=== PATIENT | female | born 1965 | race Caucasian/White ===

== ENCOUNTER 2020-05-10 18:58 | Observation (INO) ==
--- OUTSIDE RECORDS SUMMARY | 2020-05-10 19:00 | External Medical Summary | Continuity of Care Document ---
:1965 Author Name Sophia De Address Unavailable Unavailable , Care Team Providers Name Role Phone Janna SAINI Unavailable [email or web address] Active medical history not documented Allergies and Adverse Reactions Allergy history not documented Medications Medications not documented Procedures Procedures not documented Immunizations Immunizations not documented Plan of Treatment Planned Observations Planned Goals not documented Results No Known Results Results not documented
--- OUTSIDE RECORDS SUMMARY | 2020-05-10 19:01 | External Medical Summary | Continuity of Care Document ---
:1965 Author Name Sophia De Address Unavailable Unavailable , Care Team Providers Name Role Phone Janna SAINI Unavailable [email or web address] Active medical history not documented Allergies and Adverse Reactions Allergy history not documented Medications Medications not documented Procedures Procedures not documented Immunizations Immunizations not documented Plan of Treatment Planned Observations Planned Goals not documented Results No Known Results Results not documented
[2020-05-10] MEDS ORDERED: ONDANSETRON INJ 2 MG/ML 2 ML VIAL IV STA (19:34)
[2020-05-10] MEDS ORDERED: SODIUM CHLORIDE 0.9% 1000ML 1,000 ML IV ONE (19:34)
[2020-05-10] MEDS ORDERED: KETOROLAC TROMETHAMINE 15 MG/ML VIAL IV STA (19:34)
[2020-05-10 20:12] LABS: Basophils # (auto) 0.01 K/uL (0-0.2); Basophils % (auto) 0.1 %; Eosinophils # (auto) 0.03 K/uL (0-0.5); Eosinophils % (auto) 0.3 %; Hematocrit (blood only) 35.6 % (37-47); Hemoglobin 11.8 g/dL (12.0-16.0); Immature Granulocytes # (auto) 0.02 K/uL (0.00-0.02); Immature Granulocytes % (auto) 0.2 %; Lymphocytes # (auto) 1.03 K/uL (1.2-3.4); Lymphocytes % (auto) 8.9 %; Mean Corpuscular Hemoglobin 30.8 pg (25-34); Mean Corpuscular Hgb Conc 33.1 g/dL (32-36); Mean Platelet Volume 9.8 fL (7.4-10.4); Monocytes # (auto) 1.21 K/uL (0.11-0.59); Monocytes % (auto) 10.4 %; Neutrophils # (auto) 9.32 K/uL (1.4-6.5); Neutrophils % (auto) 80.1 %; Platelet Count 397 K/uL (130-400); RDW Coefficient of Variation 14.5 % (11.5-14.5); RDW Standard Deviation 49.1 fL (36.4-46.3); Red Blood Count 3.83 M/uL (4.2-5.4); White Blood Count 11.62 K/uL (4.8-10.8)
[2020-05-10 20:29] LABS: Albumin Level 4.5 gm/dl (3.4-5.0); BUN Creatinine Ratio 20.1 (10-20); Bilirubin Direct 0.2 mg/dl (0-0.2); Calcium 9.5 mg/dl (8.5-10.1); Creatinine Clr Calc Pharmacy 68.4 ml/min; Est GFR (African American) 82.8; Est GFR (Non-African American) 71.5; Potassium 3.8 mmol/L (3.5-5.1)
[2020-05-10 20:32] LABS: Bilirubin,Total 0.6 mg/dl (0.2-1); Total Protein 8.2 gm/dl (6.4-8.2)
[2020-05-10 20:39] LABS: INR 0.9 (0.9-1.1); Partial Thromboplastin Time 27.2 Seconds (21.0-31.0); Prothrombin Time 9.8 Seconds (9.0-12.0)
[2020-05-10] MEDS ORDERED: IOVERSOL 100ml IV ONE (20:51)
--- NOTE | 2020-05-10 21:07 | CT Scan Report ---
ABDOMEN AND PELVIS CT WITH IV CONTRAST CT DOSE: 444.71 mGy.cm HISTORY: Acute right lower quadrant abdominal pain rlq pain TECHNIQUE: Multiaxial CT images of the abdomen and pelvis were performed following the IV administrat ion of 91 cc of Optiray 320, A dose lowering technique was utilized adhering to the principles of AL ROGELIO. COMPARISON STUDY: CT abdomen and pelvis 03/23/2013 FINDINGS: The imaged inferior cardiac chambers are unremarkable. Clear lung bases. No pneumatosis or pneumoperitoneum. Diminutive spleen. Pancreas, adrenal glands, gallbladder and liver appear unremarka ble. There is patency of the hepatic and portal veins. Kidneys, ureters, urinary bladder and uterus a re unremarkable. No adnexal mass lesion. Mild calcified plaque of the abdominal aorta without aneurys m. There is no adenopathy. No bowel obstruction. 9 mm appendicolith in the proximal appendix. The appendix is dilated measuring up to 11 mm transversely and is fluid-filled with wall thickening and mucosal hyperemia with periappe ndiceal stranding. Additional punctate appendicoliths are noted within the appendiceal tip. Focus of air is noted within the mid appendix. No perforation or drainable fluid collection. Unremarkable soft tissues. Bones appear intact. There is no acute fracture. IMPRESSION: 1. Acute appendicitis with appendicoliths. Focus of air within the mid appendiceal lumen may be secon nia to necrosis/developing gangrenous acute appendicitis. No evidence of perforation or abscess. 2. No bowel obstruction. ACT 112: Negative or not required by law. The above report was generated using voice recognition software. It may contain grammatical, syntax o r spelling errors. Electronically signed by: Juanjo Pandya M.D. 05/10/2020 9:05 PM
[2020-05-10] MEDS ORDERED: PIPERACILLIN/TAZOBACTAM 4.5 GM/120 ML BAG IV ONE (21:43)
--- NOTE | 2020-05-10 22:29 | History & Physical Report ---
Date of Service May 10, 2020 Assessment & Plan (1) Appendicitis, acute: Pathophysiology of appendicitis was explained to the patient including indication for surgery risk and complication of the surgery other options of surgery including antibiotic although in her case it would not recommend that since she is a appendicolith and she is over 40 She agrees to proceed with surgery at this time we will get preoperative Covid test (I talk with the lab specifically regarding this) chest x-ray EKG is pending Present on Admission?: Yes History of Present Illness Primary Care Provider: Lay Reich DO 55-year-old female came into the emergency room to be evaluated for abdominal pain underwent a CT scan of the abdomen and pelvis findings repair with acute appendicitis and we were called to see her The patient states that she woke up this morning just not feeling hungry she did not think much about that but about 3:00 she started developing abdominal pain progressively migrated to the right side She denies any nausea and vomiting She has never had any pain like this before He was evaluated for kidney stones in the remote past and only surgery was an endometrial ablation She denies any chest pain any shortness of breath Presently she is working from home Allergies Allergy/AdvReac Type Severity Reaction Status Date / Time Sulfa (Sulfonamide Allergy Unknown rash Verified 09/16/14 20:57 Antibiotics) Home Medications Medication Instructions Recorded Confirmed Type CALCIUM CARBONATE (CALCIUM) 600 mg PO BID #0 03/23/13 History CHOLECALCIFEROL (Vitamin D) 1,000 inter.unit PO DAILY #0 tab 03/23/13 History FERROUS SULFATE 325 mg PO BID #0 03/23/13 History Multivitamin 1 tab PO DAILY #0 tab 03/23/13 History Past Med/Surg History Social History Smoking Status: Never smoker Tobacco Type: Cigarettes Feels Safe at Home: Yes Physical Exam Physical Exam: She is alert coherent in no distress Eyes: PERRL, conjunctivae normal, anicteric sclerae ENMT: external ear and nose normal, oropharynx normal Neck: trachea midline, no thyromegaly No palpable supraclavicular masses Respiratory: normal respiratory effort, lungs clear to auscultation normal respiratory effort Auscultation: lungs clear to auscultation bilaterally Cardiovascular: Rate/Rhythm: regular rate Heart Sounds: normal S1 Gastrointestinal (Abdomen): Localized tenderness and rebound in the right lower quadrant at McBurney's point and below it some guarding in the left lower quadrant Musculoskeletal: No pedal edema appreciated Results & Data ([facility]) Vital Signs (Past 12 Hours) Vital Signs Temp Pulse Pulse Resp BP BP Pulse Ox 05/10/20 20:55 97 H 20 121/74 98 05/10/20 19:01 37.1 C 89 16 137/90 99 results include lab was reviewed
[2020-05-10] MEDS ORDERED: SUCCINYLCHOLINE CHLORIDE 20 MG/ML 10 ML VIAL IV ONE (22:54)
[2020-05-10] MEDS ORDERED: ROCURONIUM BROMIDE 10 MG/ML 5 ML VIAL IV ONE (22:54)
[2020-05-10] MEDS ORDERED: LIDOCAINE HCL 2% 2 ML VIAL/AMP(20MG/ML) INFIL ONE (22:54)
[2020-05-10] MEDS ORDERED: GLYCOPYRROLATE 0.2 MG/ML VIAL ONE (22:54)
[2020-05-10] MEDS ORDERED: NEOSTIGMINE METHYLSULFATE 5 MG/5 ML SYR ONE (22:54)
[2020-05-10] MEDS ORDERED: DEXAMETHASONE SOD INJ 4 MG/ML VIAL ONE (22:54)
[2020-05-10] MEDS ORDERED: fentaNYL citrate 100 MCG/2 ML VIAL ONE (22:54)
[2020-05-10] MEDS ORDERED: ONDANSETRON INJ 2 MG/ML 2 ML VIAL ONE (22:54)
[2020-05-10] MEDS ORDERED: PROPOFOL IV EMULSION 10 MG/ML 20 ML VIAL IV ONE (22:54)
[2020-05-10] MEDS ORDERED: SUGAMMADEX SODIUM 200 MG/2 ML VIAL IV ONE (22:59)
[2020-05-10] MEDS ORDERED: LIDOCAINE/EPINEPHRINE 1% 20 ML VIAL ONE (23:13)
[2020-05-10] MEDS ORDERED: ATROPINE SULFATE 0.1 MG/ML 10ML SYR IV PRN (23:42)
[2020-05-10] MEDS ORDERED: ONDANSETRON INJ 2 MG/ML 2 ML VIAL IV PRN (23:42)
[2020-05-10] MEDS ORDERED: fentaNYL citrate 100 MCG/2 ML VIAL IV PRN (23:42)
[2020-05-10] MEDS ORDERED: ePHEDrine sulfate 50 MG/ML AMP IV PRN (23:42)
[2020-05-10] MEDS ORDERED: PROMETHAZINE HCL 6.25 MG in SODIUM CHLORIDE 0.9% 50 ML IV PRN (23:42)
--- NOTE | 2020-05-10 23:42 | Anesthesiology Consultation ---
Date of Service May 10, 2020 Assessment & Plan (1) Encounter for pre-operative examination: Chart Review Chart Review: Acceptable Risk for Surgery and Patient NOT seen in Pre Admission Testing Consults Requested none ASA [id number] Proposed Anesthesia Anesthesia Type: General Risk / Benefits Reviewed With: PT / POA / Parent / Guardian, Accepts Plan and Informed Consent Obtained History Surgery Operation Date: 05/10/20 22:45 Proposed Procedures p Laparoscopic Appendectomy - Tutu Weiss MD Height/Weight Height: 5 ft 3 in Weight: 76.6 kg Allergies Allergy/AdvReac Type Severity Reaction Status Date / Time Sulfa (Sulfonamide Allergy Unknown rash Verified 05/10/20 23:03 Antibiotics) Medications Home Medications Medication Instructions Recorded Confirmed Last Taken turmeric 400 mg PO DAILY 05/10/20 05/10/20 05/10/20 NPO Date Last Intake of Fluids: 05/09/20 Time Last Intake of Fluids: 15:00 Date Last Intake of Solids: 05/09/20 Time Last Intake of Solids: 15:00 Exercise / Class Metabolic Activity II 4-5 Yardwork/Stairs/Walk up hill Past Anesthesia History No Hx of Anesthesia Complications and No Family Hx of Anesthesia Complications History of PONV No Hx of PONV and No Hx of Motion Sickness Social History Smoking Status: Never smoker Physical Exam Vital Signs Last Vital Signs Temp 37.1 C 05/10/20 19:01 Pulse 74 05/10/20 23:01 Resp 18 05/10/20 23:01 BP 123/90 05/10/20 23:01 Pulse Ox 99 05/10/20 23:01 ENMT Mouth: no dentition abnormality Thyromental Distance: > or= 3.5 Finger Breadths Mallampati Class: II Neck normal visual inspection Respiratory normal respiratory effort Auscultation: lungs clear to auscultation bilaterally Cardiovascular Rate/Rhythm: regular rate and regular rhythm Psychiatric Orientation: alert Testing Laboratory Results 05/10/20 19:57 05/10/20 19:57 PT 9.8 Seconds (9.0-12.0) 05/10/20 19:57 INR 0.9 (0.9-1.1) 05/10/20 19:57 APTT 27.2 Seconds (21.0-31.0) 05/10/20 19:57
[2020-05-11] MEDS ORDERED: fentaNYL citrate 100 MCG/2 ML VIAL ONE (00:03)
[2020-05-11] MEDS ORDERED: MoRPHine SULFATE 2 MG/ML CARP ONE (00:03)
[2020-05-11] MEDS ORDERED: KETOROLAC 30 MG/ML VIAL ONE (00:07)
[2020-05-11] MEDS ORDERED: PHENYLEPHRINE 100MCG/ML 5ML SYR ONE (00:07)
[2020-05-11] MEDS ORDERED: PROPOFOL IV EMULSION 10 MG/ML 20 ML VIAL IV ONE (00:28)
--- NOTE | 2020-05-11 00:50 | Post Operative Brief Note ---
PG Immediate Post Op with CF Date of Surgery May 11, 2020 Pre & Post Diagnosis Operation Date: 05/10/20 22:45 Pre-Op Diagnosis: Acute Appendicitis Post-Op Diagnosis: Acute Appendicitis Not Ruptured I identified the patient and participated in the time-out.: Yes Procedure Operation Date: 05/10/20 22:45 <No data on this case meets the specified criteria> Surgeon Tutu Weiss MD [employer] 0 Estimated Blood Loss 5 Findings Consistent with Post-Op Diagnosis Specimens Specimen Description: A. Appendix
--- NOTE | 2020-05-11 01:21 | Operative Report ---
PG Post Operative Report Pre & Post Diagnosis Operation Date: 05/10/20 22:45 Pre-Op Diagnosis: Acute Appendicitis Post-Op Diagnosis: Acute Appendicitis Not Ruptured I identified the patient and participated in the time-out.: Yes Procedure Operation Date: 05/10/20 22:45 Actual Procedures p Laparoscopic Appendectomy - Tutu Weiss MD The patient was brought into the operating theater supine position general endotracheal anesthesia the abdomen was prepped with Betadine solution properly draped timeout was had patient identified systemic antibiotics on board in the supraumbilical area made a small opening sufficient enough to pass a Veress needle followed by CO2 followed by 5 mm trocar camera followed point of entry inspected no injury identified we were able to see the cecum very easily could not see the appendix at this point a 5 mm trocar was placed in the right upper quadrant with preemptive local analgesic at this point we were able to use a grasper and elevate the cecum and saw that the appendix we can see the base of it was involved in some prominent fatty tissue at this point I converted the 5 mm umbilical port by placing the camera right upper quadrant port then used a 12 mm trocar in the supraumbilical area the 5 mm port that we had removed we then placed a left lower quadrant with preemptive local analgesic and direct visualization camera was placed in left lower quadrant and we started working on the mobilized the appendix by first rotating the patient to the left were able to see the appendix as we elevated the cecum we able to mesoappendix was elevated and we worked from this aspect first using 10 mm clips to we were able to divide the mesoappendix hemostasis was excellent after this had been performed I was able to create a window between the cecum and the base of the appendix a blue load was brought up onto the field and we able to fire without any difficulty taking the appendix off the base of the cecum the patient had a redundant fatty tissue coming off the retroperitoneal area to the appendix itself which was elevated at this point I used another load of the DAYNA to divide the remaining fatty tissue which was separate than the mesoappendix the area was then checked hemostasis and irrigated appear satisfactory the appendix was placed in an Endopouch and taken out intact through the umbilical port from millimeter port was repositioned and then we inspected the operative site which no bleeding was identified we placed the patient in reverse Trendelenburg rotated to the right and suctioned out towards the pelvic area camera was placed in the right upper quadrant port and visualizing left lower quadrant port as we pulled that out no bleeding is identified the umbilical port no bleeding was identified the patient did have a fine band coming off the abdominal wall near the falciform ligament that we divided the remaining trocar was removed fascial stitch of 0 Vicryl was used [id number] multiple times to close the periumbilical area Monocryl was used for subcutaneous tissue in that site and the remaining trocar sites of note the patient had a very redundant supraumbilical panniculus that pretty much had her trocar site Steri-Strips were applied procedure was tolerated well by the patient estimated blood loss 5 cc addendum the appendix did not have any fibrinous exudate and grossly did not appear to be perforated all of these markedly dilated and inflamed Surgeon Tutu Weiss MD Insurance Salesperson 0 Estimated Blood Loss 5 Findings Consistent with Post-Op Diagnosis Specimens appendix Description of Procedure merda I attest to the content of the Intraoperative Record and any orders documented therein. Any exceptions are noted below.
--- NOTE | 2020-05-11 01:31 | Anesthesiology Progress Note ---
Date of Service May 11, 2020 Anesthesia Post Procedure Vital Signs Vital Signs: Temp Pulse Pulse Pulse Resp BP BP 05/11/20 01:30 36.7 C 73 20 106/60 05/11/20 01:20 73 22 113/66 05/11/20 01:10 72 16 122/71 05/11/20 01:01 36.5 C 90 12 123/74 05/10/20 23:01 74 18 123/90 05/10/20 20:55 97 H 20 121/74 05/10/20 19:01 37.1 C 89 16 137/90 Pulse Ox 05/11/20 01:30 95 05/11/20 01:20 95 05/11/20 01:10 96 05/11/20 01:01 99 05/10/20 23:01 99 05/10/20 20:55 98 05/10/20 19:01 99 Transfer of Care Handoff Completed per policy Notes Mental Status: alert / awake / arousable Patient Amnestic to Procedure: Yes Nausea / Vomiting: adequately controlled Pain: adequately controlled Airway Patency, RR, SpO2: stable & adequate BP & HR: stable & adequate Hydration State: stable & adequate Anesthetic Complications: no major complications apparent
[2020-05-11] MEDS ORDERED: PIPERACILL/TAZOBAC CONSULT ACTIVE PRN (01:54)
[2020-05-11] MEDS ORDERED: oxyCODONE/ACETAMINOPHEN 5mg/325mg TAB PO PRN (01:54)
[2020-05-11] MEDS ORDERED: MoRPHine SULFATE 4 MG/ML 1 ML CARP\\VIAL IM PRN (01:54)
[2020-05-11] MEDS ORDERED: ONDANSETRON INJ 2 MG/ML 2 ML VIAL IV PRN (01:54)
--- NOTE | 2020-05-11 01:59 | Emergency Department Note ---
History of Present Illness General Chief Complaint: Abdominal Pain Stated Complaint: ABDOMINAL PAIN Time Seen by Provider: 05/10/20 19:23 History of Present Illness Provider Complaint: abdominal pain Onset (ago): 3 hour(s) Pain Consistency: constant Location: diffuse Severity: moderate Maximum Pain Intensity: 7 Current Pain Intensity: 2 Quality: + stabbing and + aching Relieved By: + nothing Exacerbated By: + nothing Context: no foreign travel, no possible food poisoning, no sick contacts, no recent antibiotic use, no recent surgery/procedure and no recent injury Associated Symptoms: + nausea; no vomiting, no diarrhea, no fever, no chills, no constipation, no dysuria, no hematemesis, no hematochezia, no melena, no hematuria, no anorexia, no syncope, no headache, no chest pain and no numbness Home Medications Medication Instructions Recorded Confirmed Type turmeric 400 mg PO DAILY 05/10/20 05/10/20 History Allergies Allergy/AdvReac Type Severity Reaction Status Date / Time Sulfa (Sulfonamide Allergy Unknown rash Verified 05/10/20 23:03 Antibiotics) Past Med/Surg History Medical History (Updated 05/11/20 @ 02:00 by Ted Robins) No pertinent family history No pertinent past medical history Surgical History (Updated 05/11/20 @ 01:56 by Ted Robins) No pertinent past surgical history Social History Smoking Status: Never smoker Tobacco Type: Cigarettes Feels Safe at Home: Yes Review of Systems A total of 10 systems reviewed and were otherwise negative Physical Exam Vital Signs: Vital Signs - 24 hr 05/10/20 19:01 05/10/20 20:55 05/10/20 23:01 Temperature 37.1 C Temperature Source Oral Pulse Rate 89 Pulse Rate [Right Finger] 97 H 74 Respiratory Rate 16 20 18 Respiratory Effort / Characteristics Non-Labored Sponta neous Non-Labored Respiratory Depth Normal Normal Blood Pressure 137/90 Blood Pressure [Ri ght Arm] 121/74 123/90 Blood Pressure Amira n 105 Blood Pressure Amira n [Right Arm] 89 101 Pulse Oximetry 99 98 99 Oxygen Delivery Me thod Room Air Room Air Sepsis Recent Feve r Within 48 Hours No Sepsis New/Unexpla ined Change in Men thao Status No Sepsis Action Take n by Nursing No Action Required 05/10/20 23:23 Temperature Temperature Source Pulse Rate Pulse Rate [Right Finger] Respiratory Rate Respiratory Effort / Characteristics Respiratory Depth Blood Pressure Blood Pressure [Ri ght Arm] Blood Pressure Amira n Blood Pressure Amira n [Right Arm] Pulse Oximetry Oxygen Delivery Me thod Room Air Sepsis Recent Feve r Within 48 Hours Sepsis New/Unexpla ined Change in Men thao Status Sepsis Action Take n by Nursing Physical Exam: Physical Exam GENERAL: She is oriented to person, place, and time. She appears well-developed and well-nourished. She does not appear distressed. HENT: Exam performed. -Head: Normocephalic and atraumatic. -Right Ear: External ear normal. No mastoid tenderness. -Left Ear: External ear normal. No mastoid tenderness. -Mouth/Throat: The oropharynx is clear and moist. No trismus in the jaw. No dental abscesses or uvula swelling. No oropharyngeal exudate or tonsillar abscesses. EYES: Conjunctivae and EOM are normal. Pupils are equal, round, and reactive to light. Right eye exhibits no discharge. Left eye exhibits no discharge. No scleral icterus. NECK: Normal range of motion. Neck supple. No JVD present. No spinous process tenderness present. No carotid bruit present. No rigidity. No tracheal deviation and normal range of motion present. No Brudzinski's sign and no Kernig's sign noted. CV: Normal rate, regular rhythm, normal heart sounds and intact distal pulses. There is no peripheral edema. Palpable radial pulses bue. PULM/CHEST: Effort normal and breath sounds normal. No respiratory distress. No stridor. She has no wheezes. She has no rales. -Chest Wall: She exhibits no tenderness. ABD: The abdomen is soft. Bowel sounds are normal. She has no distension. No mass is present. There is tenderness to palpation of the right lower quadrant. There is no rebound, no guarding, no Mckeon's sign. Rovsig negative MUSC/SKEL: Normal range of motion. There is no peripheral edema, tenderness or deformity. LYMPH: No cervical adenopathy. NEURO: She is alert and oriented to person, place, and time. She has normal strength. No cranial nerve deficit or sensory deficit. Coordination and gait normal. GCS eye subscore is 4. GCS verbal subscore is 5. GCS motor subscore is 6. Cerebellar tests wnl. SKIN: Skin is warm and dry. She is not diaphoretic. PSYCH: She has a normal mood and affect. Behavior is normal. Judgment and thought content normal. Course Course 1922: The patient was evaluated in room B7. A complete history and physical exam was performed. 2144: Vital signs stable. Labs within normal limits. CT shows a gangrenous appendicitis. Patient treated with Zosyn. Spoke with Dr. Stockton who will evaluate the patient for surgery. Administered Medications Discontinued Medications Sodium Chloride (Nss 1000ml) 1,000 mls @ 999 mls/hr IV .Q1H1M ONE Stop: 05/10/20 20:34 Last Infusion: 05/10/20 21:03 Dose: 0 mls/hr Documented by: [id number] Admin: 05/10/20 20:02 Dose: 999 mls/hr Documented by: [id number] Piperacillin Sod/Tazobactam Sod (Zosyn) 4.5 gm in 120 mls @ 240 mls/hr IV NOW ONE Stop: 05/10/20 22:12 Last Infusion: 05/10/20 22:44 Dose: 0 mls/hr Documented by: [id number] Admin: 05/10/20 22:09 Dose: 240 mls/hr Documented by: [id number] Ioversol (Ioversol 100ml) 91 ml IV ONCE ONE Stop: 05/10/20 20:52 Last Admin: 05/10/20 20:51 Dose: 91 ml Documented by: [id number] Ketorolac Tromethamine (Ketorolac Tromethamine 15 Mg/Ml Vial) 15 mg IV NOW STA Stop: 05/10/20 19:35 Last Admin: 05/10/20 20:02 Dose: 15 mg Documented by: [id number] Lidocaine/Epinephrine (Lidocaine/Epinephrine 1% 20 Ml Vial) Confirm Administered Dose 20 ml .ROUTE .STK-MED ONE Stop: 05/10/20 23:14 Last Admin: 05/11/20 00:43 Dose: 10 ml Documented by: [id number] Ondansetron HCl (Ondansetron Inj 2 Mg/Ml 2 Ml Vial) 4 mg IV NOW STA Stop: 05/10/20 19:35 Last Admin: 05/10/20 20:02 Dose: 4 mg Documented by: [id number] Medical Decision Making Laboratory Data Result diagrams: 05/10/20 19:57 05/10/20 19:57 Lab Results 05/10/20 05/10/2005/10/21 Range/Units 19:57 19:57 19:57 WBC 11.62 H (4.8-10.8) K/uL RBC 3.83 L (4.2-5.4) M/uL Hgb 11.8 L (12.0-16.0) g/dL Hct 35.6 L (37-47) % MCV 93.0 (80-100) fL MCH 30.8 (25-34) pg MCHC 33.1 (32-36) g/dL RDW Std Deviation 49.1 H (36.4-46.3) fL RDW Coeff of Bertha 14.5 (11.5-14.5) % Plt Count 397 (130-400) K/uL MPV 9.8 (7.4-10.4) fL Immature Gran % (Auto) 0.2 % Neut % (Auto) 80.1 % Lymph % (Auto) 8.9 % [place] % (Auto) 10.4 % Eos % (Auto) 0.3 % Baso % (Auto) 0.1 % Neut # (Auto) 9.32 H (1.4-6.5) K/uL Lymph # (Auto) 1.03 L (1.2-3.4) K/uL [place] # (Auto) 1.21 H (0.11-0.59) K/uL Eos # (Auto) 0.03 (0-0.5) K/uL Baso # (Auto) 0.01 (0-0.2) K/uL Immature Gran # (Auto) 0.02 (0.00-0.02) K/uL PT 9.8 (9.0-12.0) Seconds INR 0.9 (0.9-1.1) APTT 27.2 (21.0-31.0) Seconds PTT Ratio 1.0 Sodium 137 (136-145) mmol/L Potassium 3.8 (3.5-5.1) mmol/L Chloride 104 (98-107) mmol/L Carbon Dioxide 25 (21-32) mmol/L Anion Gap 8.0 (3-11) BUN 18 (7-18) mg/dl Creatinine 0.90 (0.6-1.2) mg/dl Est Cr Clr Drug Dosing 68.4 ml/min Est GFR ( Amer) 82.8 Est GFR (Non-Af Amer) 71.5 BUN/Creatinine Ratio 20.1 H (10-20) Glucose 89 (70-99) mg/dl Calcium 9.5 (8.5-10.1) mg/dl Total Bilirubin 0.6 (0.2-1) mg/dl Direct Bilirubin 0.2 (0-0.2) mg/dl AST 16 (15-37) U/L ALT 26 (12-78) U/L Alkaline Phosphatase 71 (45-117) U/L Total Protein 8.2 (6.4-8.2) gm/dl Albumin 4.5 (3.4-5.0) gm/dl Lipase 80 (73-393) U/L SARS-CoV-2, RNA, NAAT (NEGATIVE) 05/10/20 Range/Units 22:17 WBC (4.8-10.8) K/uL RBC (4.2-5.4) M/uL Hgb (12.0-16.0) g/dL Hct (37-47) % MCV (80-100) fL MCH (25-34) pg MCHC (32-36) g/dL RDW Std Deviation (36.4-46.3) fL RDW Coeff of Bertha (11.5-14.5) % Plt Count (130-400) K/uL MPV (7.4-10.4) fL Immature Gran % (Auto) % Neut % (Auto) % Lymph % (Auto) % [place] % (Auto) % Eos % (Auto) % Baso % (Auto) % Neut # (Auto) (1.4-6.5) K/uL Lymph # (Auto) (1.2-3.4) K/uL [place] # (Auto) (0.11-0.59) K/uL Eos # (Auto) (0-0.5) K/uL Baso # (Auto) (0-0.2) K/uL Immature Gran # (Auto) (0.00-0.02) K/uL PT (9.0-12.0) Seconds INR (0.9-1.1) APTT (21.0-31.0) Seconds PTT Ratio Sodium (136-145) mmol/L Potassium (3.5-5.1) mmol/L Chloride (98-107) mmol/L Carbon Dioxide (21-32) mmol/L Anion Gap (3-11) BUN (7-18) mg/dl Creatinine (0.6-1.2) mg/dl Est Cr Clr Drug Dosing ml/min Est GFR ( Amer) Est GFR (Non-Af Amer) BUN/Creatinine Ratio (10-20) Glucose (70-99) mg/dl Calcium (8.5-10.1) mg/dl Total Bilirubin (0.2-1) mg/dl Direct Bilirubin (0-0.2) mg/dl AST (15-37) U/L ALT (12-78) U/L Alkaline Phosphatase (45-117) U/L Total Protein (6.4-8.2) gm/dl Albumin (3.4-5.0) gm/dl Lipase (73-393) U/L SARS-CoV-2, RNA, NAAT NEGATIVE (NEGATIVE) Imaging Data Radiologist's Impression: ABDOMEN AND PELVIS CT WITH IV CONTRAST CT DOSE: 444.71 mGy.cm HISTORY: Acute right lower quadrant abdominal pain rlq pain TECHNIQUE: Multiaxial CT images of the abdomen and pelvis were performed f ollowing the IV administration of 91 cc of Optiray 320, A dose lowering technique was utilized adhering to the principles of ALARA. COMPARISON STUDY: CT abdomen and pelvis 03/23/2013 FINDINGS: The imaged inferior cardiac chambers are unremarkable. Clear lung bases. No pneumatosis or pneumoperitoneum. Diminutive spleen. Pancreas, adrenal glands, gallbladder and liver appear unremarkable. There is patency of the hepatic and portal veins. Kidneys, ureters, urinary bladder and uterus are unremarkable. No adnexal mass lesion. Mild calcified plaque of the abdominal aorta without aneurysm. There is no adenopathy. No bowel obstruction. 9 mm appendicolith in the proximal appendix. The appendix is dilated measuring up to 11 mm transversely and is fluid-filled with wall thickening and mucosal hyperemia with periappendiceal stranding. Additional punctate appendicoliths are noted within the appendiceal tip. Focus of air is noted within the mid appendix. No perforation or drainable fluid collection. Unremarkable soft tissues. Bones appear intact. There is no acute fracture. IMPRESSION: 1. Acute appendicitis with appendicoliths. Focus of air within the mid appendiceal lumen may be secondary to necrosis/developing gangrenous acute appendicitis. No evidence of perforation or abscess. 2. No bowel obstruction. ACT 112: Negative or not required by law. The above report was generated using voice recognition software. It may contain grammatical, syntax or spelling errors. Electronically signed by: Juanjo Pandya M.D. 05/10/2020 9:05 PM Dictated: 05/10/202056Transcribed: 05/10/202056 MDM Narrative Vital signs stable. Labs within normal limits. CT shows a gangrenous appendicitis. Patient treated with Zosyn. Spoke with Dr. Stockton who will evaluate the patient for surgery. Impression & Plan Acute appendicitis Discharge Plan Visit Data Chief Complaint: Abdominal Pain Stated Complaint: ABDOMINAL PAIN ED Provider: Ted Robins Discharge Problem: Acute appendicitis Patient Disposition: Admitted As Inpatient Discharge Instructions Interventions: ED Discharge Assessment Last Done: 05/10/20 23:23 Discharge Problem: Acute appendicitis Qualifiers: Acute appendicitis type: with generalized peritonitis Appendicitis gangrene presence: with gangrene Appendicitis perforation presence: unspecified whether perforation present Appendicitis abscess presence: without abscess Qualified Code(s): K35.20 - Acute appendicitis with generalized peritonitis, without abscess
[2020-05-11] MEDS: LACTATED RINGER'S 1,000 ML IV SCH ×2 (02:00→12:06)
[2020-05-11] MEDS ORDERED: PIPERACILLIN/TAZOBACTAM 3.375 GM in DEXTROSE 5% 100 ML IV ONE (02:00)
[2020-05-11 05:11] VITALS: O2SAT 96
--- NOTE | 2020-05-11 07:32 | Surgery Progress Note ---
Date of Service May 11, 2020 Assessment & Plan (1) Acute appendicitis: s/p lap appy seen with Dr. Weiss doing well post op discharge if tolerates diet Admission and Anticipated Discharge Date Admission Date: May 11, 2020 Subjective No nausea, pain managed Physical Exam Gastrointestinal (Abdomen): Inspection/Auscultation: + abdominal surgical incision (clean, dry) Percussion/Palpation: abdomen soft Results & Data ([facility]) Vital Signs (Past 12 Hours) Vital Signs Temp Pulse Pulse Resp BP BP Pulse Ox 05/11/20 05:10 36.8 C 78 14 95/54 L 96 05/11/20 03:55 36.8 C 78 16 104/64 94 05/11/20 02:46 36.4 C L 77 14 96/57 L 94 05/11/20 02:20 37.7 C H 72 14 94/57 L 94 05/11/20 01:50 37.7 C H 75 16 103/55 L 96 05/11/20 01:40 36.7 C 70 20 108/62 95 05/11/20 01:30 36.7 C 73 20 106/60 95 05/11/20 01:20 73 22 113/66 95 05/11/20 01:10 72 16 122/71 96 05/11/20 01:01 36.5 C 90 12 123/74 99 05/10/20 23:01 74 18 123/90 99 05/10/20 20:55 97 H 20 121/74 98 PG Care Time/CCT Total # of Minutes Spent Total Time Spent with Patient: Total time spent is greater than 50% in coordination of care (as documented) at patient's floor/unit and/or counseling patient: Coding Level of Care Code None Diagnoses Acute appendicitis K35.20; K35.891 Acute appendicitis type: with generalized peritonitis Appendicitis abscess presence: without abscess Appendicitis gangrene presence: with gangrene Appendicitis perforation presence: unspecified whether perforation present (1) Acute appendicitis Acute appendicitis type: with generalized peritonitis Appendicitis abscess presence: without abscess Appendicitis gangrene presence: with gangrene Appendicitis perforation presence: unspecified whether perforation present Qualified Code(s): K35.20 - Acute appendicitis with generalized peritonitis, without abscess; K35.891 - Other acute appendicitis without perforation, with gangrene
[2020-05-11 07:40] VITALS: PULSE 73
--- NOTE | 2020-05-11 07:45 | XRay Report ---
XR chest 1V portable CLINICAL HISTORY: Preoperative evaluation. COMPARISON STUDY: Chest radiograph September 16, 2014. FINDINGS: Lung volumes are normal. Lungs are clear. There is no pneumothorax or pleural effusion. Car diac size is at the upper limits of normal. Mediastinal contours are normal. There is no evidence for pulmonary edema. IMPRESSION: No acute cardiopulmonary findings. ACT 112: Negative or not required by law. Electronically signed by: Aayush Guy M.D. 05/11/2020 7:44 AM
[2020-05-11] MEDS ORDERED: PIPERACILLIN/TAZOBACTAM 3.375 GM in DEXTROSE 5% 100 ML IV SCH (08:00)
[2020-05-11] MEDS ORDERED: INFLUENZA ADMINISTRATION CHARGE ONE (08:00)
[2020-05-11] MEDS ORDERED: INFLUENZA VIRUS QUAD VACCINE 0.5 ML SYR IM ONE (08:00)
[2020-05-11 11:31] VITALS: BP 90/48; TEMP 97.7
--- NOTE | 2020-05-11 14:25 | Electrocardiogram Report ---
Test Reason : Blood Pressure : / mmHG Vent. Rate : 084 BPM Atrial Rate : 084 BPM P-R Int : 170 ms QRS Dur : 086 ms QT Int : 366 ms P-R-T Axes : 042 015 067 degrees QTc Int : 432 ms Normal sinus rhythm Normal ECG When compared with ECG of 20-APR-2012 11:16, No significant change was found Confirmed by Dinh Syed ([id number]) on 05/11/2020 2:24:49 PM Referred By: Lay Reich Confirmed By:Dinh Syed
--- NOTE | 2020-05-16 13:54 | Discharge Summary ---
Date of Service May 16, 2020 Admission HPI Per Admitting Provider 55-year-old female came into the emergency room to be evaluated for abdominal pain underwent a CT scan of the abdomen and pelvis findings repair with acute appendicitis and we were called to see her The patient states that she woke up this morning just not feeling hungry she did not think much about that but about 3:00 she started developing abdominal pain progressively migrated to the right side She denies any nausea and vomiting She has never had any pain like this before He was evaluated for kidney stones in the remote past and only surgery was an endometrial ablation She denies any chest pain any shortness of breath Presently she is working from home Principal Diagnosis Acute appendicitis Discharge Exam Gastrointestinal (Abdomen) Inspection/Auscultation: + abdominal surgical incision (clean, dry); abdomen not distended Percussion/Palpation: abdomen soft Discharge Data Allergies Allergy/AdvReac Type Severity Reaction Status Date / Time Sulfa (Sulfonamide Allergy Unknown rash Verified 05/10/20 23:03 Antibiotics) Consultations 05/10/20 21:49 ED Decision to Admit Stat Procedures Performed Operation Date: 05/10/20 22:45 Actual Procedures p Laparoscopic Appendectomy - Tutu Weiss MD Ordered Studies 05/10/20 19:34 CT abd pelvis IV con only Stat Hospital Course (1) Acute appendicitis: 55 y/o female presented to the ER with abdominal pain. White count was 11,[address] was consistent with acute appendicitis. She was taken to the operating room for laparoscopic appendectomy overnight and transferred to the surgical floor for observation. In the morning she was able to advance diet and tolerate oral analgesics. She was stable for discharge home. Total Time Total Time Spent Total Time Spent (In Minutes): 10 Discharge Plan Discharge Items Patient Disposition: Home - Self-Care Reason For Visit: POST OP Discharge Diagnosis: laparoscopic appendectomy Activity: As commented below Lifting: No more than 10 pounds Bathing Comment: ok to shower Driving/Machine Use: Resume 3 days after discharge Non-emergency contact: Surgeon Call non-emergency contact if: you have any medication questions, your pain is not controlled, you have a fever, your temperature is above 101.5 and your wound has increased redness Follow-up/Referrals: Tutu Weiss MD [Family Provider] - 05/18/20 9:30 am (Call to schedule an appt in 1 week) Lay Reich DO [Primary Care Provider] - Diet: Regular Addtl Attending Provider Instructions: Pending Studies at Discharge: No Stand-Alone Forms: [facility], Opioid Pain Management, Work/School Release (Inpt), Smoking Cessation Medications and DC Order Prescriptions: New oxycodone-acetaminophen [Percocet] 5-325 mg tablet 1 - 2 tab PO Q4H PRN (Reason: pain, initial therapy, max 6 daily) Qty: 15 RF: 0 Continued turmeric 400 mg Capsule 400 mg PO DAILY RF: 0 Discharge Orders: Discharge Order (Routine); Ordered 05/11/20 Ordered By: Moe Sepulveda/Other Patient Handouts: Appendectomy, ED Post Op Wound Check, Pain Admission Data Admit Date/Time: 05/11/20 00:55 Attending Provider: Tutu Weiss Admit Provider: Tutu Weiss Primary Care Provider: Lay Reich Other Providers: Tutu Weiss Other Interventions: Discharge Summary Assessment (RN) Last Done: 05/11/20 11:19 Coding Level of Care Code D/C Day Management <30 mins Diagnoses Acute appendicitis K35.20; K35.891 Acute appendicitis type: with generalized peritonitis Appendicitis abscess presence: without abscess Appendicitis gangrene presence: with gangrene Appendicitis perforation presence: unspecified whether perforation present
== END 2020-05-11 13:24 | disposition home or self-care (01) ==
LOC: ED 18:58 → OR 23:23 → INTOOBSV 05-11 00:55 → 3N 05-11 00:55